=== PATIENT | female | born 1995 | race Caucasian/White ===

== ENCOUNTER → 2020-12-07 | Outpatient (CLI) | payer BC ==
[2020-12-09 10:14] LABS: ESTRADIOL 21.4 pg/mL (.); FSH 6.3 mIU/mL (.); LUTEINIZING HORMONE(LH) 5.9 mIU/mL (.); PROGESTERONE 0.3 ng/mL (.); PROLACTIN 13.7 ng/mL (4.8-23.3); TESTOSTERONE, SERUM 39 ng/dL (13-71)
[2020-12-09 14:11] LABS: INSULIN 41.2 uIU/mL (2.6-24.9)
== END ==
LOC: LAB 16:53
PROVIDERS: Nurse Practitioner Family
DX: N92.6 Irregular menstruation, unspecified (principal)
CPT/HCPCS: 36415; 82670; 83001; 83002; 84144; 84146; 84403; 84439; 84443

== ENCOUNTER → 2021-06-01 | Outpatient (CLI) | payer BC | LOC: LAB 15:10 | DX: Z20.822 Contact with and (suspected) exposure to COVID-19 (principal) | CPT/HCPCS: U0002 ==